=== PATIENT | female | born 1990 | race Caucasian/White ===

== ENCOUNTER → 2020-10-28 | Outpatient (CLI) | payer OTHER ==
[~2020-10-28] MED LIST: DOCUSATE SODIU100 MG PO; HYDROCODONE-AC1 EAC1 PO; IBUPROFEN800 MG PO; SERTRALINE HCL50 MG PO
[2020-10-28 12:05] LABS: HEMOGLOBIN 10.6 gm/dl (12.3-15.3); RED BLOOD COUNT 3.59 M/UL (4.00-5.10); WHITE BLOOD COUNT 8.8 K/UL (4.5-11.0)
== END ==
LOC: GENOP 11:17
PROVIDERS: Obstetrics & Gynecology
DX: Z01.812 Encounter for preprocedural laboratory examination (principal); Z20.822 Contact with and (suspected) exposure to COVID-19; Z88.5 Allergy status to narcotic agent; Z91.040 Latex allergy status
CPT/HCPCS: 36415; 81001; 85025; U0002

== ENCOUNTER 2020-10-29 08:15 | Inpatient (IN) | payer OTHER ==
[~2020-10-29] VITALS: Ht 157.5 cm; Wt 124.3 kg
[2020-10-29] MEDS ORDERED: SERTRALINE HCL50 MG PO (08:50)
[2020-10-29] MEDS ORDERED: DOCUSATE SODIU100 MG PO (15:24)
[2020-10-29] MEDS ORDERED: IBUPROFEN800 MG PO (15:24)
[2020-10-29] MEDS ORDERED: HYDROCODONE-AC1 EAC1 PO (15:24)
[2020-10-30 05:52] LABS: HEMOGLOBIN 10.1 gm/dl (12.3-15.3)
== END 2020-10-30 15:51 | disposition home or self-care (01) | DRG 788 ==
LOC: OB 08:15
PROVIDERS: ADMIT Obstetrics & Gynecology
PROC: 10D00Z1 Extraction of Products of Conception, Low, Open Approach (ICD-10-PCS; principal; 2020-10-29 09:15)
DX: O34.211 Maternal care for low transverse scar from previous cesarean delivery (principal); O99.344 Other mental disorders complicating childbirth; Z20.822 Contact with and (suspected) exposure to COVID-19; O99.334 Smoking (tobacco) complicating childbirth; O77.0 Labor and delivery complicated by meconium in amniotic fluid; E66.9 Obesity, unspecified; O99.214 Obesity complicating childbirth; F17.210 Nicotine dependence, cigarettes, uncomplicated; Z3A.39 39 weeks gestation of pregnancy; Z37.0 Single live birth; Z98.84 Bariatric surgery status; Z88.6 Allergy status to analgesic agent; Z91.040 Latex allergy status
CPT/HCPCS: 36415; 81001; 82800; 85014; 85018; 85025; 90471; 90472; 90707; C9113; J0690; J1170; J1200; J1885; J2274; J2405; J2590; J3010; J7120; U0002